=== PATIENT | male | born 1955 | race American Indian/Alaskan Native ===

== ENCOUNTER 2018-07-19 01:17 | Emergency (ER) | payer OTHER ==
--- NOTE | 2018-07-19 02:37 | XRay Report ---
PROCEDURE: RIGHT SHOULDER, 2 VIEWS TECHNIQUE: RIGHT shoulder radiographs including AP views in internal and external rotation. CPT 7303 0 HISTORY: Pain COMPARISONS: None . FINDINGS: Fracture (s) and/or Dislocation(s): There is no acute fracture. There is a screw transfixing the sca pula. . 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 There is no join t dislocation. . Soft tissues: Normal . Bone mineralization: Normal . Foreign bodies: None . IMPRESSION: There is no acute fracture. There is a screw transfixing the scapula. 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 There is no joint dislocation. This document is electronically signed by Percy Colon MD., July 19 2018 02:35:16 AM ET
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
[2018-07-19 05:45] VITALS: BP 125/73
== END 2018-07-19 05:46 | disposition home or self-care (01) ==
LOC: ED 01:17
DX: M75.01 Adhesive capsulitis of right shoulder (principal); M19.011 Primary osteoarthritis, right shoulder; J45.909 Unspecified asthma, uncomplicated; F17.200 Nicotine dependence, unspecified, uncomplicated